=== PATIENT | male | born 1945 | race Caucasian/White ===

== ENCOUNTER 2017-06-02 23:58 | Day surgery (SDC) | payer OTHER, MEDICARE ==
[~2017-06-02] VITALS: Ht 172.7 cm; Wt 80.7 kg
--- NOTE | 2017-06-03 00:29 | ED GI/GU/ABDOMINAL COMPLAINT ---
History of Present Illness General Chief Complaint: Male Genitourinary Problems Stated Complaint: "IM IN A LOT OF PAIN, I COME HERE ALL THE TIME" Source: patient, family Exam Limitations: no limitations Vital Signs & Intake/Output Vital Signs & Intake/Output Vital Signs Date Time Temp Pulse Resp B/P B/P Pulse O2 O2 Flow FiO2 Mean Ox Delivery Rate 06/03 0732 98.2 67 18 102/67 06/03 0726 98.2 67 18 102/67 97 06/03 0553 96.1 54 20 97/54 97 06/03 0206 62 22 132/84 98 Nasal 2.0L Cannula 06/03 0100 98 Room Air 06/03 0021 96.8 86 20 135/80 96 Room Air Room Air Triage Note: 71YO MALE TO TRIAGE W/CO UNABLE TO VOID SINCE LAST NIGHT. STATES HX LG PROSTATE. Triage Nurses Notes Reviewed? yes HPI: 71M PMH HTN, BPH presenting with acute urinary retention for the past 24 hours. Has been unable to urinate since the night of 06/02, has significant suprapubic pressure and appears visibly uncomfortable. Has never had a similar episode before, typically has symptoms of weak stream and incomplete voiding but never anuric with retention before. Takes only OTC supplement for his prostate. No recent fever, chills, dysuria, diarrhea, chest pain, SOB. (Jalen Chou MD) Allergies Coded Allergies: penicillin V (STOMACH SICK 06/03/17) (Rafal SULLIVAN,Christopher Johnson) Past History Travel History Traveled to [place] past 21 day No Medical History Any Pertinent Medical History? see below for history Neurological: NONE EENT: NONE Cardiovascular: hypertension, hyperlipidemia Respiratory: COPD Gastrointestinal: NONE Hepatic: NONE Renal: NONE Musculoskeletal: NONE Psychiatric: NONE Endocrine: NONE Psychosocial History What is your primary language Sinhala Tobacco Use: Current Daily Use Daily Tobacco Use Amount/Type: => 5 Cigarettes daily Family History Hx Contributory? No (Jalen Chou MD) Surgical History Surgical History: non-contributory (Rafal SULLIVAN,Christopher Johnson) Review of Systems Review of Systems Constitutional: Reports: no symptoms. EENTM: Reports: no symptoms. Respiratory: Reports: no symptoms. Cardiovascular: Reports: no symptoms. GI: Reports: no symptoms. Genitourinary: Reports: no symptoms. Musculoskeletal: Reports: no symptoms. Skin: Reports: no symptoms. Neurological/Psychological: Reports: no symptoms. Hematologic/Endocrine: Reports: no symptoms. Immunologic/Allergic: Reports: no symptoms. All Other Systems: Reviewed and Negative (Jalen Chou MD) Physical Exam Physical Exam General Appearance: well developed/nourished, moderate distress Head: atraumatic, normal appearance Eyes: Bilateral: normal appearance. Ears, Nose, Throat, Mouth: moist mucous membrane Neck: normal inspection, full range of motion Respiratory: normal breath sounds, chest non-tender, no respiratory distress Cardiovascular: regular rate/rhythm Gastrointestinal: soft, firm suprapubic region, no tenderness Back: normal inspection, normal range of motion Extremities: normal range of motion Neurologic/Psych: awake, alert, oriented x 3, normal mood/affect Skin: intact, normal color, warm/dry (Jalen Chou MD) Physical Exam Male Genitals: normal genitalia Core Measures ACS in differential dx? No Sepsis Present: No Sepsis Focused Exam Completed? No (Rafal SULLIVAN,Christopher Johnson) Progress Differential Diagnosis: AAA, AMI, appendicitis, biliary colic, bowel obstruction , colon cancer, cholecystitis, diverticulitis, epididymitis, esophageal varices, gastritis, hepatitis, hernia, hemorrhoids, ischemic bowel, inflamm bowel dis, Karen-Jose C tear, orchitis, pancreatitis, prostatitis, peptic ulcer, PUD/GERD, perforated viscous, pyelonephritis, SBO, STD, testicular torsion, ureterolithiasis, urinary retention, urethritis, UTI/pyelo Plan of Care: Orders Procedure Date/time Status EKG 06/03 0522 Active Castro, Insertion/Removal/Asses 06/03 003 Active CULTURE,URINE 06/03 003 Active URINALYSIS 06/03 003 Complete COMPREHENSIVE METABOLIC PANEL 06/03 003 Complete CBC WITHOUT DIFFERENTIAL 06/03 003 Complete Laboratory Tests 06/03/17 0325: Urine Color BIBI, Urine Clarity TURBD H, Urine pH 6.0, Ur Specific [place] 1.025, Urine Protein 100 H, Urine Ketones 15 H, Urine Nitrite NEG, Urine Bilirubin NEG@ICTO, Urine Urobilinogen 0.2, Ur Leukocyte Esterase TRACE H, Ur Microscopic SEDIMENT EXAMINED, Urine RBC PACKD H, Urine WBC RARE, Urine Hemoglobin LARGE H, Urine Glucose NEG 06/03/17 0155: Anion Gap 11, Estimated GFR > 60, BUN/Creatinine Ratio 20.0, Glucose 127 H, Calcium 9.5, Total Bilirubin 1.1, AST 37, ALT 34, Alkaline Phosphatase 40, Total Protein 6.8, Albumin 4.0, Globulin 2.8, Albumin/Globulin Ratio 1.4, CBC w Diff NO MAN DIFF REQ, RBC 4.30 L, MCV 92.6, MCH 31.6 H, MCHC 34.1, RDW 13.1, MPV 8.1, Gran % 77.4 H, Lymphocytes % 15.3 L, Monocytes % 6.3, Eosinophils % 0.6, Basophils % 0.4, Absolute Granulocytes 5.6, Absolute Lymphocytes 1.1 L, Absolute Monocytes 0.5, Absolute Eosinophils 0, Absolute Basophils 0 Microbiology 06/03 324 URINE ROUT: Urine Culture - RECD Initial ED EKG: none (Jalen Chou MD) Hand-Off Endorsed To: Jose Daniel Irving DO Endorsed Time: 0700 Pending: other (to OR this am. ) (Rafal SULLIVAN,Christopher Johnson) Departure Departure Condition: Stable Clinical Impression Primary Impression: Acute urinary retention Secondary Impressions: BPH (benign prostatic hyperplasia) Referrals: iFli SULLIVAN,Isrrael Tracy (PCP/Family) Departure Forms: Customer Survey General Discharge Information (Jalen Chou MD) Departure Disposition: STILL A PATIENT Comments 06/03/17, 1:50am... multiple attempts with many sizes of castro were unsuccessful. discussed with dr. stacy who will evaluate patient. 06/03/17, 3:27am... pt now with suprapubic tube by dr. stacy... pt to go to OR this am. (Rafal SULLIVAN,Christopher Johnson) Departure Comments PATIENT TAKEN TO OR BY DR STACY AT 8:00 AM. (Jose Daniel Irving DO)
[2017-06-03 02:12] LABS: ABSOLUTE BASOPHIL COUNT 0 /CUMM (0.0-0.2); ABSOLUTE EOSINOPHIL COUNT 0 /CUMM (0.0-0.7); ABSOLUTE GRANULOCYTE CT 5.6 /CUMM (1.4-6.5); ABSOLUTE LYMPH COUNT 1.1 /CUMM (1.2-3.4); ABSOLUTE MONOCYTE COUNT 0.5 /CUMM (0.10-0.60); BASOPHIL % 0.4 % (0.0-2.0); EOSINOPHIL % 0.6 % (0-5); HEMATOCRIT 39.8 % (42-52); MEAN CORPUSCULAR HGB 31.6 PG (27.0-31.0); MEAN CORPUSCULAR HGB CONC 34.1 G/DL (33.0-37.0); MEAN CORPUSCULAR VOLUME 92.6 FL (80.0-94.0); MEAN PLATELET VOLUME 8.1 FL (7.4-10.4); PLATELET COUNT 189 /CUMM (130-400); RBC DISTRIBUTION WIDTH 13.1 % (11.5-14.5); WHITE BLOOD CELL COUNT 7.3 /CUMM (4.8-10.8)
[2017-06-03 02:19] LABS: GRANULOCYTE % 77.4 % (42.2-75.2)
--- NOTE | 2017-06-03 03:35 | Cons- Urology ---
See Addendum General Information and HPI Consulting Request Date of Consult: 06/03/17 Requested By: MD RHYS, [facility]. Reason for Consult: URINARY RETENTION: UNABLE TO PLACE [place] Source of Information: patient, family Exam Limitations: no limitations History of Present Illness: 71 YEAR OLD WITHOLDING FLUID INTAKE DUE TO WORSENING RETENTION. NOW PRESENTS WITH 24 HOURS OF NO URINE OUTPUT. ER TEAM TRIED MULTIPLE TIMES TO PLACE [place] AND UNABLE. I WAS CALLED IN FOR CONSULT, AND UNDER EMERGENT CIRCUMSTANCES REQUIRED SPT/CORINA PLACEMENT TEMPORARILY;WILL NEED CYSTO.. TURP. Allergies/Medications Allergies: Coded Allergies: penicillin V (STOMACH SICK 06/03/17) Current Medications: Current Medications Sig/Rj Start time Last Medication Dose Route Stop Time Status Admin Lidocaine/Epinephrine 0 .STK-MED ONE 06/03 0255 DC .ROUTE Morphine Sulfate 6 MG ONCE ONE 06/03 0215 DC 06/03 IV 06/03 215 0216 Morphine Sulfate 0 .STK-MED ONE 06/03 0214 DC .ROUTE Tamsulosin HCl 0.4 MG ONCE ONE 06/03 0030 DC PO 06/03 0031 Past History Medical History Neurological: NONE EENT: NONE Cardiovascular: hypertension, hyperlipidemia Respiratory: COPD Gastrointestinal: NONE Hepatic: NONE Renal: NONE Musculoskeletal: NONE Psychiatric: NONE Endocrine: NONE Psychosocial History Where Do You Live? Home Who Do You Live With? child Services at Home: None Primary Language: Tongan ETOH Use: denies use Illicit Drug Use: denies illicit drug use Name of POA/HCP: SON Functional Ability ADLs Independent: dressing, eating, toileting, bathing. Ambulation: independent IADLs Independent: shopping, housework, finances, food prep, telephone, transportation , medication admin. Employment History Retired? unknown Review of Systems Review of Systems Constitutional: Reports: see HPI. EENTM: Denies: no symptoms. Cardiovascular: Denies: no symptoms. Respiratory: Denies: no symptoms. GI: Denies: no symptoms. Genitourinary: Reports: see HPI, hematuria, pain. Musculoskeletal: Denies: no symptoms. Skin: Denies: no symptoms. Neurological/Psychological: Denies: no symptoms. Exam & Diagnostic Data Vital Signs and I&O Vital Signs Date Time Temp Pulse Resp B/P B/P Pulse O2 O2 Flow FiO2 Mean Ox Delivery Rate 06/03 0206 62 22 132/84 98 Nasal 2.0L Cannula 06/03 0100 98 Room Air 06/03 0021 96.8 86 20 135/80 96 Room Air Room Air Intake & Output 06/03 0800 06/03 0000 06/02 1600 06/02 0800 06/02 0000 06/01 1600 Intake Total Output Total 150 Balance -150 Output, Urine 150 Patient 178 lb Weight Physical Exam General Appearance: well developed/nourished, moderate distress Head: atraumatic Eyes: Bilateral: normal appearance. Neck: normal inspection Respiratory: normal breath sounds Cardiovascular: regular rate/rhythm Gastrointestinal: normal bowel sounds, soft, non-tender Back: no vertebral tenderness Extremities: normal inspection Skin: intact Reproductive: Normal male genitalia Last 24 Hours of Labs: Laboratory Tests 06/03 06/03 0325 0155 Chemistry Sodium (137 - 145 mmol/L) 137 Potassium (3.5 - 5.1 mmol/L) 5.3 H Chloride (98 - 107 mmol/L) 103 Carbon Dioxide (22 - 30 mmol/L) 24 Anion Gap (5 - 16) 11 BUN (9 - 20 mg/dL) 16 Creatinine (0.7 - 1.2 mg/dL) 0.8 Estimated GFR (>60 ml/min) > 60 BUN/Creatinine Ratio (7 - 25 %) 20.0 Glucose (65 - 99 mg/dL) 127 H Calcium (8.4 - 10.2 mg/dL) 9.5 Total Bilirubin (0.2 - 1.3 mg/dL) 1.1 AST (17 - 59 U/L) 37 ALT (21 - 72 U/L) 34 Alkaline Phosphatase (< 127 U/L) 40 Total Protein (6.3 - 8.2 g/dL) 6.8 Albumin (3.5 - 5.0 g/dL) 4.0 Globulin (1.9 - 4.2 gm/dL) 2.8 Albumin/Globulin Ratio (1.1 - 2.2 %) 1.4 Hematology CBC w Diff NO MAN DIFF REQ WBC (4.8 - 10.8 /CUMM) 7.3 RBC (4.70 - 6.10 /CUMM) 4.30 L Hgb (14.0 - 18.0 G/DL) 13.6 L Hct (42 - 52 %) 39.8 L MCV (80.0 - 94.0 FL) 92.6 MCH (27.0 - 31.0 PG) 31.6 H MCHC (33.0 - 37.0 G/DL) 34.1 RDW (11.5 - 14.5 %) 13.1 Plt Count (130 - 400 /CUMM) 189 MPV (7.4 - 10.4 FL) 8.1 Gran % (42.2 - 75.2 %) 77.4 H Lymphocytes % (20.5 - 51.1 %) 15.3 L Monocytes % (1.7 - 9.3 %) 6.3 Eosinophils % (0 - 5 %) 0.6 Basophils % (0.0 - 2.0 %) 0.4 Absolute Granulocytes (1.4 - 6.5 /CUMM) 5.6 Absolute Lymphocytes (1.2 - 3.4 /CUMM) 1.1 L Absolute Monocytes (0.10 - 0.60 /CUMM) 0.5 Absolute Eosinophils (0.0 - 0.7 /CUMM) 0 Absolute Basophils (0.0 - 0.2 /CUMM) 0 Urines Urine Color Pending Urine Clarity Pending Urine pH Pending Ur Specific [place] Pending Urine Protein Pending Urine Ketones Pending Urine Nitrite Pending Urine Bilirubin Pending Urine Urobilinogen Pending Ur Leukocyte Esterase Pending Ur Microscopic Pending Urine Hemoglobin Pending Urine Glucose Pending Assessment/Plan Assessment/Plan URINARY RETENTION-BLADDER PALPABLE 4CM ABOVE SP: SPT PLACED-WILL NEED CYSTO- FRAN[place] IN OR. Copies To: Estrada SULLIVAN,Kip Consult Acknowledgment - Thank you for your consult request. Attending MD Review Statement Attending Statement Attending MD Statement: examined this patient, discuss w/resident/PA/SUPERVISOR [employer] Attending Assessment/Plan: TO O.R. FOR CYSTO/FRANKLIN PLACEMENT AND SOON TURP.
[2017-06-03 07:32] VITALS: BP 102/67
--- NOTE | 2017-06-06 15:18 | Operative Report ---
Operative/Inv Procedure Report Surgery Date: 06/03/17 Name of Procedure: urinary retention: difficult castro placement; spt-bonnanno removal Pre-Operative Diagnosis: urinary retentions Post-Operative Diagnosis: same Estimated Blood Loss: scant Surgeon/Biologist: MD Estrada, Kip-Urology Anesthesia: moderate sedation Drains: 20fr [place] tip castro Specimens: urine cx Complications: none Condition: improved Operative/Procedure Note Note: The patient was taken to the operating room, and placed on the OR table in supine position. Timeout was performed, with the patient awake, to confirm of patient, anesthesia, antibiotics, procedure, and other pertinent perioperative information. After adequate anesthesia, and antibiotics, the patient was then placed lithotomy stirrups, then draped and prepped, in the usual surgical fashion. A 22 [place] cystoscope sheath with 30 angle lens was inserted into the urethra. Under direct visualization, the cystoscope was advanced to the level of the prostatic urethra. A false lumen was noted on the posterior prostate undermining the bladder. Direct visualization allowed me to bypass this false passage, and enter the bladder without further difficulty. The bladder was noted to be severely trabeculated, with no tumor, no stone. Through the cystoscope, a 0.038 guidewire was inserted into the bladder. The cystoscope was removed, leaving the guidewire in place. A 20 [place] tip Castro catheter , was railroaded over this guidewire and advanced easily into the bladder. The guidewire was removed, draining clear fluid. 10 mL of sterile water was placed into the 10 mL balloon. At this point, the Bonnano suprapubic tube was then withdrawn from the suprapubic tube site without difficulty in its entirety. The percutaneous entrance site of the Bonnano suprapubic tube was then cleaned, and a pressure bandage, with sterile gauze, was placed over the suprapubic tube site in order to allow it to heal. The patient tolerated procedures well. All sponge needle and instrument count were correct at the end of the case. The patient was taken to the recovery room in satisfactory condition. He is given postoperative instructions, antibiotics, pain medications, and was taught to use leg bag prior to discharge to home. Findings: large prostate -false channel from prior castro attempt Discharge Disposition: PACU Additional Comments: dc home from . CC: Kip Dorado MD
== END 2017-06-03 ==
LOC: ERH 23:58 → ER-OR 06-03 00:03 → ERH 06-03 00:03 → ER-OR 06-03 07:59 → STS 06-03 07:59
PROVIDERS: Internal Medicine
DX: N40.1 Benign prostatic hyperplasia with lower urinary tract symptoms (principal); R33.8 Other retention of urine; N32.89 Other specified disorders of bladder; I10 Essential (primary) hypertension; E78.5 Hyperlipidemia, unspecified; F17.210 Nicotine dependence, cigarettes, uncomplicated; J44.9 Chronic obstructive pulmonary disease, unspecified; I25.2 Old myocardial infarction
CPT/HCPCS: 81001; 87086; 93005; 93010; 96374; J0690

== ENCOUNTER → 2017-06-15 | Day surgery (SDC) | payer OTHER, MEDICARE ==
--- NOTE | 2017-06-22 10:49 | Operative Report ---
Operative/Inv Procedure Report Surgery Date: 06/15/17 Name of Procedure: cystoscopy: UROLIFT IMPLANT x 6 Pre-Operative Diagnosis: BPH-urinary retention Post-Operative Diagnosis: same Estimated Blood Loss: scant Surgeon/Automatic Door Mechanic: Kip Dorado MD Anesthesia: laryngeal mask airway Implants: UROLIFT x 6 Specimens: none Complications: none Operative/Procedure Note Note: The patient was taken to the operating room and placed on the OR table in supine position. Timeout was performed, with the patient awake, in order to confirm correct identity, procedure, antibiotics, anesthesia, and other pertinent perioperative information. After adequate anesthesia and antibiotics, the patient was then placed lithotomy stirrups, draped and prepped in the usual surgical fashion, after removing the indwelling Zabala catheter. A 20 [place] cystoscope was inserted into the bladder without significant difficulty, noting the bilateral obstructing lobes of the prostate, with small middle lobe. The cystoscope bridge was replaced with the UROLIFT deployment device. The first treatment site was the patient's left base of prostate, approximately 1.5 cm distal to the bladder neck. The distal tip of the delivery device was then angled laterally, approximately 20 at this position to compress the lateral lobe. The trigger was pulled, thereby deploying a needle containing the implant through the prostate. The needle was then retracted, allowing one end of the implant to be delivered to the capsule surface of the prostate. The implant was then tensioned to assure capsular sealing and removal of slack monofilament. The device was then angled back toward midline and slowly advanced proximally until cystoscopic verification of the monofilament being centered in the delivery bay. The urethral end piece was then affixed to the monofilament, thereby tailoring the size of the implant. Excess filament was then severed. The delivery device was then readvanced into the bladder. The delivery device was then replaced with cystoscope, and bridge, and implant location and opening effect was confirmed cystoscopically. The same procedure was then repeated on the right side, just distal to the right bladder neck. And 2 additional implants were delivered proximal to the vera montanum, again one on the right and one in the left side of the prostate following the similar technique. Having re-scoped the prostate lumen, I was not satisfied with the channel opening with the mid-prostate lobes collapsed. Cystoscopy revealed a persistent that area of obstruction, and 2 more implants were delivered in the mid prostate; one on the right lateral lobe, and 2 on the left lateral robe. A total of 6 implants were placed in the patient's anterio prostate, in order to create an open channel. A final cystoscopy was conducted to inspect the location of each implant, and second, to confirm the presence of a continuous anterior channel present through the prostatic urethra, with the irrigation flow turned off. The bladder was then filled with 150 mL of irrigation fluid, and the cystoscope was removed. A 20 [place] Zabala was inserted without difficulty, draining clear fluid. patient tolerated procedure well All sponge needle and instrument count were correct at the end of the case. The patient tolerated the procedure well, and taken to the recovery room in satisfactory condition. Discharge Disposition: PACU CC: Kip Dorado MD
== END ==
LOC: STS 01:26
DX: N40.1 Benign prostatic hyperplasia with lower urinary tract symptoms (principal); R33.8 Other retention of urine; J44.9 Chronic obstructive pulmonary disease, unspecified; F17.211 Nicotine dependence, cigarettes, in remission; M19.90 Unspecified osteoarthritis, unspecified site; Z79.82 Long term (current) use of aspirin
CPT/HCPCS: J0131; J2250; L8699